=== PATIENT | female | born 1975 | race Asian ===

== ENCOUNTER 2017-05-25 15:50 | Outpatient (CLI) | payer BC | END 2017-05-25 18:33 | disposition home or self-care (01) | LOC: SDS 15:50 | PROVIDERS: ATTEND Family Medicine | DX: Z12.31 Encounter for screening mammogram for malignant neoplasm of breast (principal) | CPT/HCPCS: G0202 ==

== ENCOUNTER 2020-09-17 09:25 | Outpatient (CLI) | payer BC | END 2020-09-17 20:47 | disposition home or self-care (01) | LOC: SMA 09:25 | PROVIDERS: ATTEND Family Medicine | DX: Z12.31 Encounter for screening mammogram for malignant neoplasm of breast (principal) | CPT/HCPCS: 77067 ==